=== PATIENT | male | born 1965 | race Caucasian/White ===

== ENCOUNTER → 2017-09-24 | Outpatient (CLI) | payer BC ==
[~2017-09-24] MED LIST: ASPI81EC PO; DILT180 PO; ENOX100I SQ; FLUSAL2505 INH; METO25ER PO; METO50ER PO; PRED20; Phentermine HCl30 MG PO; SERT50 PO; SPIHYD PO; WARF10 PO; WARF5 PO; WARF6 PO; [UNRECOGNIZED DRUG - REMARK]
== END | disposition home or self-care (01) ==
LOC: LAB 18:28 → LAB SHORT 18:28
DX: L08.9 Local infection of the skin and subcutaneous tissue, unspecified (principal)
CPT/HCPCS: 87070; 87077; 87186

== ENCOUNTER → 2020-05-18 | Outpatient (CLI) | payer BC | END | disposition home or self-care (01) | LOC: LAB SHORT 08:32 → PLD 08:32 | DX: L98.9 Disorder of the skin and subcutaneous tissue, unspecified (principal) | CPT/HCPCS: 88305; 88312; 88313 ==

== ENCOUNTER → 2020-05-18 | Outpatient (CLI) | payer SELFPAY | END | disposition home or self-care (01) | LOC: LAB 15:30 → LAB SHORT 15:30 | DX: L98.9 Disorder of the skin and subcutaneous tissue, unspecified (principal) | CPT/HCPCS: 87071; 87075; 87205 ==